=== PATIENT | female | born 1945 | race Caucasian/White ===

== ENCOUNTER 2024-04-23 12:46 | Inpatient (IN) | payer MEDICARE, OTHER ==
[~2024-04-23] VITALS: Ht 149.9 cm; Wt 59.1 kg
[~2024-04-23 12:46] MED LIST: AMOX875T4 PO
[2024-04-23 13:57] LABS: Basophils # (auto) 0 10 ^3/uL (0-0.2); Basophils % (auto) 0.1 % (0.0-2.0); Eosinophils # (auto) 0 10 ^3/uL (0-0.8); Hematocrit 42.9 % (36.0-46.0); Lymphocytes # (auto) 0.8 10 ^3/uL (0.4-5.4); Lymphocytes % (auto) 5.2 % (10.0-50.0); Mean Corpuscular Hgb Conc. 32.7 g/dL (32.0-36.0); Mean Corpuscular Volume 85.8 fL (80.0-100.0); Monocytes % (auto) 6.8 % (0.0-12.0); Neutrophils # (auto) 13.6 10 ^3/uL (1.6-8.6); Neutrophils % (auto) 87.9 % (37.0-80.0); Nucleated Red Blood Cells % 0.1 %; White Blood Cell 15.5 10^3/uL (4.4-10.8)
[2024-04-23 14:07] LABS: Alanine Aminotransferase 18 U/L (7-40); Albumin 4.4 g/dL (3.2-4.8); Alkaline Phosphatase 92 U/L (46-116); Anion Gap 6 (5-15); Aspartate Aminotransferase 50 U/L (13-40); BUN/Creatinine Ratio 11.4 (10.0-20.0); Bilirubin, Total 0.4 mg/dL (0.2-1.0); Blood Urea Nitrogen 10 mg/dL (9-23); Calcium 10.1 mg/dL (8.7-10.4); Carbon Dioxide 24 mmol/L (20-30); Chloride 102 mmol/L (98-107); Glucose 114 mg/dL (74-106); Lipase 34 U/L (12-53); Potassium 4.3 mmol/L (3.5-5.1); Sodium 132 mmol/L (136-145); Total Protein 7.3 g/dL (5.7-8.2)
[2024-04-23 14:13] LABS: INR 0.97 (0.9-1.15); Prothrombin Time 10.3 sec (9.3-11.8)
[2024-04-23 15:00] VITALS: PULSE 103; RESP 17; O2SAT 96
[2024-04-23] MEDS: ASPirin-EC 325mg tab PO ONE (16:01)
[2024-04-23] MEDS: NITROGLYCERIN 2% OINT 1GM PKG TD ONE (16:02)
[2024-04-23 16:56] LABS: Magnesium 2.2 mg/dL (1.6-2.6)
[2024-04-23] MEDS: HEPARIN SODIUM (PORCINE) 5000 UNITS/ML 1ML VIAL IV ONE ×2 (17:02→18:24)
[2024-04-23] MEDS: HEPARIN DRIP/D5W 100UNITS/ML 250 ML IV SCH ×2 (17:05→18:25)
[2024-04-23] MEDS ORDERED: NITROGLYCERIN 0.4 MG SL TAB SL PRN ×2 (17:15→17:30)
[2024-04-23] MEDS ORDERED: ACETAMINOPHEN 325 MG TAB PO PRN ×4 (17:15→17:30)
[2024-04-23] MEDS ORDERED: HYDROcodone-ACET 5/325MG TAB PO PRN (17:15)
[2024-04-23] MEDS ORDERED: MORPHINE SULFATE INJ 2 MG/ml SYRG IV PRN ×4 (17:15→17:30)
[2024-04-23 18:54] LABS: Urine Bacteria None Seen /hpf (None Seen)
[2024-04-23] MEDS: LISINOPRIL 5 MG TAB PO ONE (19:11)
[2024-04-23 19:19] LABS: Amphetamine Screen, Urine Neg (NEGATIVE); Barbiturate Scree,Urine Neg (NEGATIVE); Benzodiazephine Screen, Urine Neg (NEGATIVE); Urine Blood TRACE /uL (Negative); Urine Clarity Clear (Clear); Urine Color Light-Yellow (Yellow); Urine Protein, UAD Negative (Negative); Urine Specific Gravity 1.009 (1.001-1.035); Urine Urobilinogen Normal (Negative); Urine WBC <1 /hpf (0 - 5)
[2024-04-23 19:20] LABS: Cocaine Screen, Urine Neg (NEGATIVE)
[2024-04-23 19:21] LABS: Cannabinoid Screen, Urine Neg (NEGATIVE); Opiate Scree,Urine Neg (NEGATIVE); Phencyclidine Screen, Urine Neg (NEGATIVE)
[2024-04-23 19:30] VITALS: PULSE 91; RESP 18; O2SAT 96
[2024-04-23] MEDS: cefTRIAXone 1GM/50ML D5W 50 ML IV ONE (21:03)
[2024-04-23] MEDS ORDERED: ATORVASTATIN 20 MG TAB PO SCH (22:00)
[2024-04-23] MEDS: ATORVASTATIN 20 MG TAB PO SCH (22:00)
[2024-04-23] MEDS: METOPROLOL TARTRATE 25 MG TAB PO SCH (22:30)
[2024-04-23] MEDS: SODIUM CHLOR 0.9% PF (SALINE LOCK) 10ML VIAL/SYR IV SCH (22:31)
[2024-04-23] MEDS: HYDROcodone-ACET 5/325MG TAB PO PRN (22:34)
[2024-04-23] MEDS: AZITHROMYCIN 500MG/ 250ML 250 ML IV ONE (22:34)
[2024-04-24] MEDS: HEPARIN DRIP/D5W 100UNITS/ML 250 ML IV SCH ×2 (02:49→17:12)
[2024-04-24 07:32] VITALS: PULSE 93; RESP 16; O2SAT 96
[2024-04-24 09:02] LABS: INR 1.02 (0.9-1.15); Partial Thromboplastin Time 37.1 SEC (24.5-34.5); Prothrombin Time 10.8 sec (9.3-11.8)
[2024-04-24] MEDS: cefTRIAXone 1GM/50ML D5W 50 ML IV SCH (09:02)
[2024-04-24] MEDS: LISINOPRIL 5 MG TAB PO SCH (10:03)
[2024-04-24 15:39] LABS: INR 1.03 (0.9-1.15); Partial Thromboplastin Time 33.3 SEC (24.5-34.5); Prothrombin Time 10.9 sec (9.3-11.8)
[2024-04-24] MEDS: HEPARIN SODIUM (PORCINE) 5000 UNITS/ML 1ML VIAL IV ONE (17:06)
[2024-04-24 18:39] VITALS: BP 144/64; PULSE 77; RESP 13; TEMP 98; O2SAT 93
[2024-04-24 20:00] VITALS: BP 133/57; PULSE 74; PULSE 79; PULSE 85; RESP 19; RESP 23; TEMP 98.9; O2SAT 94
[2024-04-24] MEDS: AZITHROMYCIN 500MG/ 250ML 250 ML IV SCH (22:57)
[2024-04-24 23:48] LABS: INR 1.08 (0.9-1.15); Prothrombin Time 11.4 sec (9.3-11.8)
[2024-04-25] VITALS (20 sets, daily range): BP systolic 73–129; BP diastolic 45–66; PULSE 62–85; RESP 12–28; TEMP 98–99; O2SAT 92–96
[2024-04-25 00:02] LABS: Partial Thromboplastin Time 131.1 SEC (24.5-34.5)
[2024-04-25] MEDS: HEPARIN DRIP/D5W 100UNITS/ML 250 ML IV SCH ×2 (01:07→08:44)
[2024-04-25 06:04] LABS: Basophils # (auto) 0.1 10 ^3/uL (0-0.2); Basophils % (auto) 0.6 % (0.0-2.0); Eosinophils # (auto) 0 10 ^3/uL (0-0.8); Eosinophils % (auto) 0.1 % (0.0-7.0); Hematocrit 39.5 % (36.0-46.0); Hemoglobin 13.2 g/dL (12.2-16.2); Lymphocytes # (auto) 2.6 10 ^3/uL (0.4-5.4); Lymphocytes % (auto) 27.7 % (10.0-50.0); Mean Corpuscular Hemoglobin 28.6 pg (28.0-32.0); Mean Corpuscular Hgb Conc. 33.3 g/dL (32.0-36.0); Mean Corpuscular Volume 85.9 fL (80.0-100.0); Monocytes # (auto) 0.8 10 ^3/uL (0-1.3); Monocytes % (auto) 9.1 % (0.0-12.0); Neutrophils # (auto) 5.8 10 ^3/uL (1.6-8.6); Neutrophils % (auto) 62.5 % (37.0-80.0); Nucleated Red Blood Cells % 0.2 %; Red Cell Distribution Width 13.7 % (11.8-14.3); White Blood Cell 9.3 10^3/uL (4.4-10.8)
[2024-04-25 06:15] LABS: Chloride 102 mmol/L (98-107); Potassium 3.8 mmol/L (3.5-5.1); Sodium 134 mmol/L (136-145)
[2024-04-25 06:16] LABS: Anion Gap 6 (5-15); Carbon Dioxide 26 mmol/L (20-30)
[2024-04-25 06:17] LABS: Calcium 9.4 mg/dL (8.5-10.1)
[2024-04-25 06:22] LABS: BUN/Creatinine Ratio 14.3 (10.0-20.0); Blood Urea Nitrogen 10 mg/dL (9-23); Glucose 106 mg/dL (74-106)
[2024-04-25 07:55] LABS: INR 1.03 (0.9-1.15); Prothrombin Time 10.9 sec (9.3-11.8)
[2024-04-25] MEDS ORDERED: HEPARIN DRIP/D5W 100UNITS/ML 250 ML IV SCH (08:45)
[2024-04-25] MEDS: ASPirin 81 mg TAB PO SCH (12:08)
[2024-04-25 15:02] LABS: INR 1.05 (0.9-1.15); Partial Thromboplastin Time 53.4 SEC (24.5-34.5); Prothrombin Time 11.1 sec (9.3-11.8)
[2024-04-25 21:47] LABS: INR 1.08 (0.9-1.15); Partial Thromboplastin Time 55.9 SEC (24.5-34.5); Prothrombin Time 11.4 sec (9.3-11.8)
[2024-04-26] VITALS: BP 130/53; PULSE 77; PULSE 78; RESP 19; RESP 23; TEMP 98.9; O2SAT 93; O2SAT 94
[2024-04-26 02:47] LABS: INR 1.05 (0.9-1.15); Partial Thromboplastin Time 61.9 SEC (24.5-34.5); Prothrombin Time 11.1 sec (9.3-11.8)
[2024-04-26 04:00] VITALS: BP 143/61; PULSE 58; PULSE 66; RESP 17; RESP 22; TEMP 98.1; O2SAT 94; O2SAT 95
[2024-04-26 05:30] LABS: Basophils # (auto) 0.1 10 ^3/uL (0-0.2); Basophils % (auto) 0.9 % (0.0-2.0); Eosinophils # (auto) 0 10 ^3/uL (0-0.8); Eosinophils % (auto) 0.4 % (0.0-7.0); Hematocrit 39.8 % (36.0-46.0); Hemoglobin 13.5 g/dL (12.2-16.2); Lymphocytes # (auto) 2.3 10 ^3/uL (0.4-5.4); Lymphocytes % (auto) 26.3 % (10.0-50.0); Mean Corpuscular Hemoglobin 28.9 pg (28.0-32.0); Mean Corpuscular Hgb Conc. 33.9 g/dL (32.0-36.0); Mean Corpuscular Volume 85.1 fL (80.0-100.0); Monocytes # (auto) 0.8 10 ^3/uL (0-1.3); Monocytes % (auto) 9.2 % (0.0-12.0); Neutrophils # (auto) 5.5 10 ^3/uL (1.6-8.6); Neutrophils % (auto) 63.2 % (37.0-80.0); Nucleated Red Blood Cells % 0.1 %; Red Blood Cells 4.68 10^6/uL (4.0-5.20); Red Cell Distribution Width 13.7 % (11.8-14.3); White Blood Cell 8.8 10^3/uL (4.4-10.8)
[2024-04-26 08:00] VITALS: BP 141/105; PULSE 74; PULSE 77; PULSE 81; RESP 17; RESP 20; TEMP 98.2; O2SAT 87; O2SAT 99
[2024-04-26 08:50] LABS: Chloride 103 mmol/L (98-107); Potassium 3.9 mmol/L (3.5-5.1); Sodium 135 mmol/L (136-145)
[2024-04-26 08:51] LABS: Anion Gap 6 (5-15); Calcium 9.4 mg/dL (8.5-10.1); Carbon Dioxide 26 mmol/L (20-30)
[2024-04-26 08:56] LABS: Glucose 129 mg/dL (74-106)
[2024-04-26 09:21] LABS: BUN/Creatinine Ratio 12.3 (10.0-20.0); Blood Urea Nitrogen 9 mg/dL (9-23)
[2024-04-26] MEDS: LORazepam 2MG/ML-1ML VIAL IV PRN (11:22)
[2024-04-26 12:00] VITALS: BP 121/84; PULSE 59; PULSE 73; RESP 20; RESP 27; TEMP 98.8; O2SAT 98; O2SAT 99
[2024-04-26] MEDS ORDERED: PRAV20TA3 PO (13:52)
[2024-04-26] MEDS ORDERED: ONDA-155 PO (13:52)
[2024-04-26] MEDS ORDERED: SERT-206 PO (13:52)
[2024-04-26] MEDS ORDERED: MONT10TA23 PO (13:52)
[2024-04-26] MEDS ORDERED: LORA-655 PO (13:52)
[2024-04-26] MEDS ORDERED: FLUT230A2 INH (13:52)
[2024-04-26] MEDS ORDERED: TRAM50TA2 PO (13:52)
[2024-04-26] MEDS ORDERED: [UNRECOGNIZED DRUG - CODE] SC (13:54)
[2024-04-26 16:00] VITALS: BP 134/45; PULSE 72; PULSE 81; RESP 20; RESP 24; TEMP 98.7; O2SAT 95; O2SAT 99
[2024-04-26] MEDS ORDERED: LISI-275 PO (16:08)
[2024-04-26] MEDS ORDERED: MET25T PO (16:08)
[2024-04-26] MEDS ORDERED: ASPI-325 PO (16:08)
[2024-04-26 16:17] VITALS: BP 134/45; PULSE 77; RESP 15; TEMP 98.7; O2SAT 96
== END 2024-04-26 19:21 | disposition home or self-care (01) | DRG 281 ==
LOC: EDUNIT# 12:46 → ER 12:46 → EDBD 12:46 → ER 17:15 → TELE 17:15 → DOU IN ICU 04-24 18:01
PROVIDERS: ADMIT Registered Nurse; ATTEND Registered Nurse
DX: I21.4 Non-ST elevation (NSTEMI) myocardial infarction (principal); E87.1 Hypo-osmolality and hyponatremia; I10 Essential (primary) hypertension; F17.200 Nicotine dependence, unspecified, uncomplicated; J44.9 Chronic obstructive pulmonary disease, unspecified; D72.829 Elevated white blood cell count, unspecified; E78.5 Hyperlipidemia, unspecified; F32.A Depression, unspecified; I08.1 Rheumatic disorders of both mitral and tricuspid valves; G31.84 Mild cognitive impairment of uncertain or unknown etiology; Z88.0 Allergy status to penicillin; Z91.041 Radiographic dye allergy status; Z79.899 Other long term (current) drug therapy; Z79.82 Long term (current) use of aspirin
CPT/HCPCS: 36415; 70450; 70551; 71045; 80048; 80053; 80061; 80307; 81001; 83690; 83735; 83880; 84484; 85025; 85610; 85730; 87040; 87077; 87081; 93005; 93306; 93886; 95819; 96365; 96366; 96367; 96375; 96376; G0378